=== PATIENT | female | born 2000 | race Caucasian/White ===

== ENCOUNTER 2025-07-04 02:36 | Emergency (ER) | payer BC, SELFPAY ==
[2025-07-04 02:37] VITALS: BMI 18.9
[2025-07-04 02:40] VITALS: BP 114/73
[2025-07-04 03:11] LABS: Hematocrit 40.6 % (37.0-47.0); Hemoglobin 13.2 g/dL (12.0-16.0); Mean Corp Hgb Conc. 32.5 g/dL (33.0-37.0); Mean Corpuscular Volume 87.7 fL (81.0-99.0); Nucleated Red Blood Cells % 0 %; Platelet Count 322 10^3/uL (130-400); Red Cell Dist. Width 12.5 % (11.5-14.5)
[2025-07-04 03:44] LABS: ALT (SGPT) 12 U/L (0-35); AST (SGOT) 18 U/L (14-36); Albumin 4.8 g/dl (3.5-5.0); Alkaline Phosphatase 58 U/L (38-126); Blood Urea Nitrogen 15 mg/dl (7-17); Calcium 10.0 mg/dl (8.4-10.2); Carbon Dioxide 26 mmol/L (22-30); Chloride 105 mmol/L (98-107); Estimated Creatinine Clearance 104 ml/min; Glucose 85 mg/dl (70-99); Lipase 109 U/L (23-300); Potassium 4.1 mmol/L (3.5-5.1); Sodium 137 mmol/L (135-145); Total Protein 7.6 g/dl (6.3-8.2); eGFR > 60.00
[2025-07-04 04:01] LABS: Urine Character Clear (Clear)
[2025-07-04 04:11] LABS: Urine Squamous Cell 16-20 /LPF (Few)
[2025-07-04 04:12] LABS: HCG, Serum Qualitative Screen Negative
[2025-07-04] MEDS: NSS 1000 IV (05:57)
[2025-07-04 06:12] VITALS: BP 117/75
--- NOTE | 2025-07-04 06:52 | ED.GENMED ---
History of Present Illness
General
Chief Complaint: Abdominal Pain
Source: patient and family
Time Seen by Provider: 07/04/25 02:47
Nursing documentation reviewed up to this point in time: agreed with
History of Present Illness
History of Present Illness:
Note:
CHIEF COMPLAINT(S)
Sharp, stabbing pain in the right side.
HISTORY OF PRESENT ILLNESS
The patient is a 24-year-old female presenting with a sharp, stabbing pain in the right side of her abdomen, which began the previous night. The pain has progressively worsened throughout the day and has been severe enough to awaken her from sleep
twice. The patient denies a history of kidney stones. She reports that the pain was present while driving to the facility. The pain is described as higher and radiating upon palpation, but it does not improve or worsen with food intake. She denies
any fever or menstrual irregularities, with her last menstrual period occurring four weeks ago. The patient acknowledges inadequate hydration today and admits to smoking. A family history of kidney stones is noted.
SOCIAL HISTORY
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 She admits to smoking, though the specific product isnt detailed. The patient mentions a familial connection to
kidney stones.
PHYSICAL EXAM
General: Alert, no acute distress.
Skin: Warm, dry.
Head: Normocephalic, atraumatic.
Neck: Supple, trachea midline.
Eyes, Ears, Nose, Mouth, and Throat: Oral mucosa moist.
Cardiovascular: Normal peripheral perfusion, No edema.
Respiratory: Respirations are non-labored.
Gastrointestinal: Abdomen nondistended, tenderness on the right side with radiation upon palpation.
Back: Normal range of motion, Normal alignment.
Musculoskeletal: Normal ROM, normal strength.
Neurological: Alert and oriented to person, place, time, and situation, No focal neurological deficit observed.
Psychiatric: Cooperative, appropriate mood & affect.
PLAN
The plan includes initiating intravenous fluids to address dehydration. A CT scan of the abdomen is planned to investigate the cause of abdominal pain, assess for potential kidney stones, and rule out other potential causes such as menstrual-related
issues or internal bleeding.
DIFFERENTIAL DIAGNOSIS
The Differential Diagnosis includes, in no particular order and is not limited to:
1. Renal calculi (kidney stones)
2. Appendicitis
3. Ovarian cysts or torsion
4. Gastrointestinal issues (e.g., bowel obstruction or perforation)
5. Musculoskeletal pain (e.g., muscle strain)
6. Gallstones or cholecystitis
7. Urinary tract infection
8. Ectopic
9. Gastroesophageal reflux disease
10. Hepatic or splenic conditions (e.g., enlargement, rupture)
Disposition:
SUMMARY OF ENCOUNTER
The patient presented to the emergency department with a sharp, stabbing pain in the right side of her abdomen, progressively worsening throughout the day. The pain was severe enough to disturb her sleep. The initial management involved addressing
her dehydration with intravenous fluids and ordering a CT scan of the abdomen to evaluate potential causes such as kidney stones or appendicitis.
DISPOSITION
Discharge.
ASSESSMENT
The patient was assessed for potential causes of abdominal pain, including renal calculi, appendicitis, ovarian cysts, gastrointestinal issues, and other possibilities.
PLAN
The plan involved addressing dehydration with intravenous fluids and obtaining a CT scan to further evaluate the cause of abdominal pain. The patient will be discharged with instructions for appropriate follow-up care.
INDEPENDENT REVIEW OF LABS AND INTERPRETATION OF TESTS
My independent review of laboratory work indicates a normal white blood cell count and normal chemistry findings. Urinalysis shows some red blood cells and bacteria, suggesting a possible urinary tract infection.
My independent interpretation of the ultrasound indicates borderline splenic enlargement, though other findings are not specified.
PATIENT EDUCATION AND COUNSELING
The patient was informed about the potential causes of abdominal pain and the significance of staying hydrated. Smoking cessation was discussed due to its potential effects on health.
MEDICATION RECONCILIATION
Prescription medication was not currently prescribed, but the patient may require medications based on CT scan findings and follow-up assessment.
MEDICAL DECISION MAKING
-Complexity of Data Reviewed: Chronic conditions affecting care (acknowledged inadequate hydration, smoking) Renal calculi (kidney stones), Appendicitis, Ovarian cysts or torsion, Gastrointestinal issues (e.g., bowel obstruction or perforation),
Musculoskeletal pain (e.g., muscle strain), Gallstones or cholecystitis, Urinary tract infection, Ectopic , Gastroesophageal reflux disease, Hepatic or splenic conditions (e.g., enlargement, rupture).
-Data:
Category 1
The following testing was considered, but ultimately not selected after discussion with patient/family: Pending CT scan of the abdomen results which will aid in further management decisions.
Category 2
My independent interpretation of ultrasound indicates borderline splenic enlargement.
-Risk:
Consideration of Admission/Observation: Escalation of care including admission/observation was considered given the complexity and risk of the patients presenting complaint, exam findings, and/or their underlying comorbidities. However, ultimately I
feel the patient is safe for outpatient management with close follow up. Reasoning: Work-up reassuring, does not reveal any acute life/organ threatening processes, patients symptoms well controlled upon reevaluation, reexamination is reassuring,
vitals are stable, patient agreeable with discharge, reliable for follow-up.
Hematuria could be from patient impending menstrual cycle. It may be a recently passed kidney stone. Patient is having no urinary symptoms. Urinalysis looks otherwise normal. Patient does have mild splenomegaly. Monospot was negative but it was
early. She will follow-up with her family doctor.
DIAGNOSIS
Abdominal pain, unspecified (ICD-10: R10.9).
Phy Exam
Physical Exam
Physical Exam:
.
Course
Orders/Labs/Results
Orders:
Orders
07/04/25 02:45
IV Insert/Care/Rem.- Treatment PRN
07/04/25 02:58
Complete Blood Count/With Diff Urgent
Comprehensive Metabolic Panel Urgent
HCG, Serum Qualitative Screen Urgent
Comment: ADD ON
Lipase Urgent
Monotest Urgent
Comment: ADD ON
Urinalysis Reflex To Culture Urgent
Date Specimen was Collected: 07/04/25
Time Specimen was Collected: 02:46
Urine Microscopic Reflex Cult Urgent
07/04/25 03:45
CT Abd/pel Without Iv Or Oral Urgent
Comment:
Reason For Exam: r flank pain
Test Result ONCE
07/04/25 03:51
Add On- LAB Urgent
Tests Added?: HCG serum qualitative screen
07/04/25 05:36
Add On- LAB Urgent
Tests Added?: monospot
0.9% Sodium Chloride 1000 ml [Nss] 1,000 ml IV BOLUS
07/04/25 06:13
US Abdomen Complete/Upper Urgent
Comment:
Reason For Exam: ruq abd pain
Abnormal Lab Results
07/04/25
02:58
MCHC 32.5 L g/dL
(33.0-37.0)
Absolute Monos (auto) 0.9 H 10^3/uL
(0.1-0.6)
Monocytes % 9.4 H %
(1.7-9.3)
Urine Ketones 2+ A
(Negative)
Urine RBC 3-6 A /HPF
(0-2)
Urine Bacteria (Reflex) Few A
(Negative)
Urine Albumin (Reflex) 2+ A
(Neg - Trace)
07/04/25 02:58
07/04/25 02:58
Vital Signs
Initial and Last Documented VS:
Initial Vital Signs
Temp Pulse Resp BP Pulse Ox
98.1 F 72 20 114/73 98
07/04/25 02:40 07/04/25 02:40 07/04/25 02:40 07/04/25 02:40 07/04/25 02:40
Last Documented Vital Signs
Temp Pulse Resp BP Pulse Ox
98.1 F 72 20 117/75 98
07/04/25 02:40 07/04/25 02:40 07/04/25 02:40 07/04/25 06:12 07/04/25 06:53
*Radiology
Radiology exam reviewed: radiology read reviewed
*Pulse Oximetry
SaO2: 98
Oxygen Mode of Delivery: Room air
Patient hypoxic: no
*Critical Care Note
Total Time (30-74mins, 75-104mins- exclusive of procedures): Not Applicable
ED Attending Note
-
Portions of this chart may have been created with voice recognition software.� Occasional wrong word or��sound alike� substitutions may have occurred due to the inherent limitations of voice recognition software.
Discharge Plan
Departure
Patient Disposition: Home (Routine Discharge)
Date of Disposition: 07/04/25
Time of Disposition: 06:58
Patient with high blood pressure during this ER visit?: No
Condition: Good
Discharge Problem:
Abdominal pain, Hematuria, Splenomegaly
Instructions: Blood in the urine (hematuria) - ED (DC), Abdominal Pain
Referrals:
Erika Plascencia MD [Family Provider]
Activity Restrictions/Additional Instructions:
As discussed, your spleen is enlarged. Please follow-up with your family doctor should the pain persist. You may need further testing.
Thank You for choosing [facility].
It was a pleasure meeting you and taking part in your care. We hope for your continued healing and wellness.
Please read discharge instructions in their entirety. However, they are for general education and may not describe your exact diagnosis at discharge. Information on your ER visit and medical conditions were discussed with you along with appropriate
follow up information...
If indicated, please take your medications as instructed and indicated on discharge paperwork.
Please schedule a follow up appointment as directed. Call to schedule an appointment
Please return to the emergency department with ANY change in, persisting, or worsening of symptoms. If any of your symptoms do not improve, or persist, or become more severe within 6-12 hours, please return to the emergency department for further
care.
Please return to the emergency department if you develop a headache, neck pain/stiffness, fever greater than 100.4F, chest pain, shortness of breath, persistent nausea, vomiting, slurred speech, difficulty walking, numbness/tingling, weakness, signs
of infection or any other symptoms that are worrisome to you.
If you have any questions or concerns please do not hesitate to call the Hospital at .
Interventions
Interventions:
*Risk Screen - Suicide Last Done: 07/04/25 02:40
*General Assessment Last Done: 07/04/25 02:40
*Neglect/Abuse Screening Last Done: 07/04/25 02:40
*ED- Fall Risk Assessment Last Done: 07/04/25 02:40
*ED COVID-19 Vaccine History Last Done: 07/04/25 02:40
*ED Influenza Vaccine History Last Done: 07/04/25 02:40
*Nursing Disposition Last Done: 07/04/25 07:28
EE-Cfqjmc-Nrnyuqkqrd Assessment Last Done: 07/04/25 03:01
Discharge Date and Time
Discharge Date/Time: 07/04/25 07:28
Print Language: ANGUILLAN
== END 2025-07-04 07:28 | disposition home or self-care (01) ==
LOC: EMR 02:36
PROVIDERS: EMERGENCY PHYSICIAN Student in an Organized Health Care Education/Training Program; FAMILY PHYSICIAN Internal Medicine
DX: R10.11 Right upper quadrant pain (principal); R31.9 Hematuria, unspecified; R16.1 Splenomegaly, not elsewhere classified; E86.0 Dehydration; F17.200 Nicotine dependence, unspecified, uncomplicated
CPT/HCPCS: 99284; 74176; 76700; 80053; 81003; 81015; 83690; 84703; 85025; 86308